=== PATIENT | female | born 1990 | race African-American/Black ===

== ENCOUNTER 2021-01-16 15:50 | Day surgery (SDC) | payer OTHER ==
[2021-01-16] MEDS ORDERED: hydrALAZINE 20 MG/ML VIAL SLOW IVP PRN (16:52)
[2021-01-16] MEDS ORDERED: TETANUS, DIPHTHERIA TOX,ADULT (TDVAX) 0.5 ML VIAL IM ONE (18:12)
[2021-01-16 18:33] LABS: Bilirubin Neg (Negative); Blood, Urine 25 (Negative); Clarity Clear (Clear); Glucose, Urine (Dipstick) Normal (Negative); Ketone, Urine Negative (Negative); Leukocyte Negative (Negative); Nitrite Negative (Negative); Protein, Urine (Dipstick) Negative (Neg-Trace); Urobilinogen Normal mg/dL (Less than 2)
[2021-01-16 18:49] LABS: Bacteria/HPF Rare-Few HPF (None Seen); Mucous/LPF Rare LPF (<2+); Squamous Epithelial 0-3 HPF (0-3); Transitional Epithelial 0-3 HPF (None Seen); WBC/HPF 0-3 HPF (0-3)
== END 2021-01-16 19:30 | disposition home or self-care (01) ==
LOC: CSHLD/OP 15:50
PROVIDERS: ATTEND Obstetrics & Gynecology
DX: O47.02 False labor before 37 completed weeks of gestation, second trimester (principal); O99.891 Other specified diseases and conditions complicating pregnancy; R10.2 Pelvic and perineal pain; O99.712 Diseases of the skin and subcutaneous tissue complicating pregnancy, second trimester; L03.115 Cellulitis of right lower limb; Z3A.20 20 weeks gestation of pregnancy; Z88.5 Allergy status to narcotic agent; Z88.6 Allergy status to analgesic agent
CPT/HCPCS: 81001; 87086; 90471; 90675; 99283

== ENCOUNTER 2021-01-16 19:43 | Emergency (ER) | payer OTHER ==
[2021-01-16] MEDS ORDERED: Rabies Vaccine Human 2.5 UNITS VIAL ONE (20:58)
== END 2021-01-16 21:10 | disposition home or self-care (01) ==
LOC: CSHERS 19:43
DX: O9A.212 Injury, poisoning and certain other consequences of external causes complicating pregnancy, second trimester (principal); S81.052A Open bite, left knee, initial encounter; S91.351A Open bite, right foot, initial encounter; W54.0XXA Bitten by dog, initial encounter
CPT/HCPCS: 90675

== ENCOUNTER 2021-11-16 16:49 | Emergency (ER) | payer OTHER ==
[2021-11-16] MEDS ORDERED: Acetaminophen 500 MG TAB ONE (19:18)
[2021-11-16 20:37] LABS: SARS-CoV-2 NAA Rapid Test DETECTED (NotDetected)
== END 2021-11-16 20:48 | disposition home or self-care (01) ==
LOC: CSHERS 16:49
DX: U07.1 COVID-19 (principal)
CPT/HCPCS: 0240U; 71045